=== PATIENT | male | born 1975 | race Caucasian/White ===

== ENCOUNTER 2016-10-26 11:15 | Emergency (ER) | payer SELFPAY ==
[~2016-10-26 11:15] MED LIST: ALLOPURINOL100 MG PO; BRINTELLIX10 MG PO; BUSPAR DPS15 MG PO; GLUCOPHAGE1000 MG PO; GLUCOTROL DPS5 MG PO; HUMALOG100 UNIT/1 SQ; INVEGA3 MG PO; LEVEMIR100 UNIT/1 PO; MAALOX DPS30 ML PO; STRATTERA80 MG PO; SURFAK DPS240 MG PO; SYNTHROID DPS0.1 MG PO; TYLENOL DPS325 MG PO; ZESTRIL DPS10 MG PO
--- NOTE | 2016-11-01 21:28 | ER ---
ADMIT: 10/26/2016 RM/LOC: [facility] MR#: [id number] [address] [place] [id number] [place] [address] Emergency Room Report SEX: M AGE: 40 : 1975 DATE: 10/26/2016 ADDENDUM: CHIEF COMPLAINT: Left leg pain. HISTORY OF PRESENT ILLNESS: This is a 40-year-old male who said he has had this left leg pain just kind of started in the middle of the night. He came here because he was worried about having a DVT. PAST MEDICAL HISTORY: Diabetes and bipolar. MEDICATIONS: Please see nurse's note. ALLERGIES: NO KNOWN ALLERGIES. SOCIAL HISTORY: Denies any tobacco, drug, or alcohol use. FAMILY HISTORY: Noncontributory. REVIEW OF SYSTEMS: CONSTITUTIONAL: Denies any fever, chills, or sweats. CARDIOVASCULAR/RESPIRATORY: He does say he is short of breath at times, may be a little bit more in the last 2 weeks. He also knows this is due to his obesity. Since the leg pain has started that he has not had any kind of increased shortness of breath. Denies any chest pain. GI/: Denies any nausea, vomiting, or diarrhea. MUSCULOSKELETAL: The main complaint is that he has posterior left knee pain. COURSE IN THE EMERGENCY ROOM: An ultrasound was done, is negative for any DVT, over-read by radiologist. CBC was normal except for white count of 11.6. His MCV is slightly low at 77. Hemoglobin and platelets were normal. CMP is ADMIT: 10/26/2016 RM/LOC: [facility] MR#: [id number] [address] [place] [id number] [address] [place] [address] Emergency Room Report SEX: M AGE: 40 : 1975 normal. Troponin is normal. Chest x-ray was negative. EKG normal sinus rhythm. No ST elevation or depression. When speaking with the patient more, when I go to discharge him, he does tell me that he actually tried to lift up a mini fridge yesterday and that could be something that is contributing to his leg pain. I told him more than likely that is what is causing it. There is no erythema and no swelling. CLINICAL IMPRESSION: Hamstring strain. DISPOSITION: Told him to ice the area. Use Motrin and Tylenol for pain and follow up as needed. RAFIQ Weber / Zoltan Plata MD / galileo JOB #: [id number] CC: Zoltan Plata MD, Attending Physician UNKNOWN, Family Physician
== END 2016-10-26 13:27 | disposition home or self-care (01) ==
LOC: ER 11:15
DX: S76.812A Strain of other specified muscles, fascia and tendons at thigh level, left thigh, initial encounter (principal); E11.9 Type 2 diabetes mellitus without complications; F31.9 Bipolar disorder, unspecified; Z88.0 Allergy status to penicillin; Z79.899 Other long term (current) drug therapy; X58.XXXA Exposure to other specified factors, initial encounter